=== PATIENT | male | born 1945 | race Caucasian/White ===

== ENCOUNTER 2020-03-06 00:02 | Inpatient (IN) | payer BC, OTHER ==
[~2020-03-06] VITALS: Ht 170.2 cm; Wt 83.5 kg
[2020-03-06] VITALS (7 sets, daily range): BP systolic 155–190; BP diastolic 82–98
--- NOTE | 2020-03-06 00:19 | NUR ---
COVID SWAB SENT TO LAB.
--- NOTE | 2020-03-06 00:21 | NUR ---
SPOKE TO MD REGARDING PT'S PAIN LEVEL. ORDERED 1MG IVP NOW OF DILAUDID.,.
[2020-03-06] MEDS ORDERED: HYDROMORPHONE 1 MG/1 ML DISP.SYRIN ONE (00:26)
[2020-03-06] MEDS ORDERED: HYDROMORPHONE INJ 0.5 MG/0.5 ML SYRINGE IV ONE (00:30)
--- NOTE | 2020-03-06 00:49 | NUR ---
CALL FROM LAB, COVID NEGATIVE.
[2020-03-06] MEDS ORDERED: INSULIN REGULAR, HUMAN 100 UNIT/ML 3 ML VIAL SQ PRN (01:00)
[2020-03-06] MEDS ORDERED: MAGNESIUM HYDROXIDE 30 ML UDC PO PRN (01:00)
[2020-03-06] MEDS ORDERED: ONDANSETRON HCL/PF 4 MG/2 ML VIAL IVP PRN (01:00)
[2020-03-06] MEDS ORDERED: DEXTROSE 50%-WATER 50 ML DISP.SYRIN IV PRN ×2 (01:00)
[2020-03-06] MEDS ORDERED: ACETAMINOPHEN 650 MG/SUPP.RECT RC PRN (01:00)
[2020-03-06] MEDS ORDERED: Z GUARD REMEDY 2 OZ OINT TP PRN (01:00)
--- NOTE | 2020-03-06 01:20 | NUR ---
PT TRANSFERED BY EMT.
--- NOTE | 2020-03-06 01:20 | NUR ---
REPORT GIVEN TO FRANCISCO PÉREZ FOR RONNY
--- NOTE | 2020-03-06 02:00 | NUR ---
MS TRANSPORTATION PROJECT MANAGER NOTES RECEIVED PATIENT FROM ER TRANSFER FROM [facility] FOR RIGHT HIP FRACTURE S/P MECHANICAL FALL AT HOME, ALERT AND ORIENTED X 4. VERBALLY RESPONSIVE AND ABLE TO FOLLOW DIRECTIONS. BREATHING REGULAR AND UNLABORED ON ROOM AIR. LEFT HAND G18 IV LINE INTACT BUT LEAKS WHEN FLUSHED. BODY ASSESSMENT DONE, SKIN INTACT BUT SEEN WITH RIGHT HAND SKIN DISCOLORATION PER PATIENT HE GOT IT WHEN HE FELL EARLIER. PATIENT DOESN'T HAVE ADVANCE DIRECTIVES BUT WISH TO BE FULL CODE. DENIES SUICIDAL IDEATION AT THIS TIME. VITAL SIGNS AND BELONGINGS CHECKED BY PRODUCTION ROUSTABOUT. COMPLAINED OF 7/10 RIGHT HIP PAIN, NON-PHARMACOLOGICAL INTERVENTIONS PROVIDED. ADVISED ON NOTHING BY MOUTH. BED LOW AND LOCKED ON SEMI FOWLERS POSITION. CALL LIGHT IN REACH. WILL CONTINUE TO MONITOR.
[2020-03-06] MEDS: IV D5/0.45 NACL 1,000 ML IV PRN ×2 (02:11→18:54)
--- NOTE | 2020-03-06 02:30 | NUR ---
MS RN NOTES REFUSED BENITEZ CATHETER INSERTION FOR NOW, PATIENT REQUEST TO DO IT LATER BEFORE THE SURGERY. RISK AND BENEFITS EXPLAINED.
--- NOTE | 2020-03-06 03:30 | NUR ---
MS RN NOTES IV LINE REINSERTED ON RIGHT AC G20 WITH GOOD BLOOD BACKFLOW AND FLUSHING WELL.
[2020-03-06] MEDS: HYDROMORPHONE INJ 2 MG/ML DISP.SYRIN IV PRN ×4 (03:58→22:54)
--- NOTE | 2020-03-06 05:00 | NUR ---
MS RN NOTES YOGI RENE NOTIFIED REGARDING DVT SCORE OF >5 WITH NO ORDERS FOR CHEMICAL DVT PPX, PATIENT MIGHT HAVE A SURGERY TODAY.
[2020-03-06] MEDS ORDERED: BLOOD SUGAR DIAGNOSTIC 1 EACH STRIP IN SCH (06:00)
[2020-03-06 06:26] LABS: BASOPHILS % (AUTO) 0.1 % (0.0-2.0); HEMATOCRIT 38 % (39-51); HEMOGLOBIN 12.5 g/dL (13.5-17.5); LYMPHOCYTES # (AUTO) 0.8 /CMM (0.8-4.8); LYMPHOCYTES % (AUTO) 10.2 % (20.0-44.0); MEAN CORPUSCULAR HGB CONC 33 g/dl (31.0-36.0); MEAN CORPUSCULAR VOLUME 91 fL (80-96); MONOCYTES # (AUTO) 0.4 /CMM (0.1-1.30); MONOCYTES % (AUTO) 5.4 % (2.0-12.0); NEUTROPHILS # (AUTO) 6.9 /CMM (1.8-8.9); NEUTROPHILS % (AUTO) 84.3 % (43.0-81.0); PLATELET COUNT (AUTO) 166 /CMM (150-450); RED BLOOD CELL COUNT(AUTO) 4.15 MIL/uL (4.5-6.0); WHITE BLOOD COUNT (AUTO) 8.2 K/uL (4.3-11.0)
[2020-03-06] MEDS: BLOOD SUGAR DIAGNOSTIC 1 EACH STRIP IN SCH ×4 (06:30→23:18)
[2020-03-06] MEDS: INSULIN REGULAR, HUMAN 100 UNIT/ML 3 ML VIAL SQ PRN ×3 (06:31→16:54)
--- NOTE | 2020-03-06 06:40 | NUR ---
MS RN CLOSING NOTES PATIENT IN BED ALERT AND ORIENTED X 4. AFEBRILE WITH NO S/S OF DISTRESS OBSERVED. RIGHT AC G20 IV LINE INTACT AND INFUSING WELL. COMPLAINED OF 6/10 RIGHT HIP PAIN, BUT NOT DUE FOR PAIN MEDS YET. NON-PHARMACOLOGICAL INTERVENTIONS PROVIDED. MAINTAINED ON NOTHING BY MOUTH. BED LOW AND LOCKED ON SEMI FOWLERS POSITION. CALL LIGHT IN REACH. WILL ENDORSE TO MORNING SHIFT FOR RONNY.
[2020-03-06 07:20] LABS: ALBUMIN 3.8 g/dL (3.4-5.0); BILIRUBIN,TOTAL 0.6 mg/dL (0.2-1.0); CALCIUM, SERUM 9.1 mg/dL (8.5-10.1); CREATININE 1.1 mg/dL (0.6-1.3); MAGNESIUM 2.1 mg/dL (1.8-2.4); PHOSPHORUS 3.5 mg/dL (2.5-4.9); POTASSIUM 4.2 mmol/L (3.5-5.1); TOTAL PROTEIN, SERUM 7.8 g/dL (6.4-8.2)
--- NOTE | 2020-03-06 09:30 | NUR ---
RN NOTE No CD from [facility] or any record of scans. Duina Newberry ordered hip xray STAT. Spoke with CM from [facility] about missing CD/records.
[2020-03-06] MEDS ORDERED: SIMV-49 PO (09:42)
[2020-03-06] MEDS ORDERED: LOSA100T31 PO (09:42)
[2020-03-06] MEDS ORDERED: TAMS-12 PO (09:42)
[2020-03-06] MEDS ORDERED: ALPR2TAB7 PO (09:42)
[2020-03-06] MEDS ORDERED: GLIM2TAB31 PO (09:42)
[2020-03-06] MEDS ORDERED: MORP30TA7 PO (09:42)
[2020-03-06] MEDS ORDERED: OMEP40CA13 PO (09:42)
[2020-03-06] MEDS ORDERED: ESCI20TA PO (09:42)
[2020-03-06] MEDS ORDERED: INSU100I30 SUBCUT (09:42)
[2020-03-06] MEDS ORDERED: ALLO300T2 PO (09:42)
[2020-03-06] MEDS ORDERED: OXYC20TA42 PO (09:42)
[2020-03-06] MEDS ORDERED: METF-834 PO (09:42)
[2020-03-06] MEDS ORDERED: FLUT16SP BNOSTRILS (09:42)
[2020-03-06] MEDS ORDERED: NALO25TA PO (09:42)
[2020-03-06] MEDS: hydrALAZINE HCL IV 20 MG VIAL IV PRN ×2 (09:47→17:16)
[2020-03-06 10:03] LABS: IRON, SERUM 41 ug/dl (50-175); TOTAL IRON BINDING CAPACITY 742 ug/dl (250-450)
[2020-03-06 10:22] LABS: FERRITIN 127 ng/mL (8-388)
--- NOTE | 2020-03-06 10:22 | NUR ---
RN NOTE 3 unsuccessful attempts at inserting rousseau catheter with myself and a second RN. MD made aware. Addendum: 03/06/20 at 1023 by YEYO HULL RN Also notified MD for med-recon.
[2020-03-06] MEDS ORDERED: LOSARTAN POTASSIUM 50 MG TABLET PO SCH (10:30)
[2020-03-06] MEDS ORDERED: oxyCODONE IR immediate release 5 MG PO PRN (10:30)
--- NOTE | 2020-03-06 11:04 | NUR ---
RN NOTE Per Dunia KENDALL. Patient is to be NPO after midnight and scheduled for RIGHT HIP HEMIARTHROPLASTY VERSUS TOTAL HIP ARTHROPLASTY tomorrow midafternoon. Orders repeated back and carried out. Ok per Dr. Hopkins to start patient on diet and NPO after midnight.
[2020-03-06] MEDS: METFORMIN 500 MG TABLET PO SCH ×2 (11:44→16:38)
--- NOTE | 2020-03-06 12:00 | NUR ---
RN NOTE BS 227. Patient refused insulin. Patient stated, " i am not eating and I am not hungry."
[2020-03-06] MEDS ORDERED: ENSURE ENLIVE 237 ML LIQUID (VANILLA) PO SCH (13:00)
[2020-03-06] MEDS ORDERED: HYDROMORPHONE 1 MG/1 ML DISP.SYRIN IV ONE (14:45)
--- NOTE | 2020-03-06 14:53 | NUR ---
RN NOTE Dr. Mae at the bedside. Patient continues to complain of pain 10/10. Per , ok to order DILAUDED 1MG ONE TIME prior to catheter insertion. Patient remains stable, vital signs stable. Will continue to monitor.
[2020-03-06] MEDS: GLUCERNA SHAKE 237 ML CAN PO SCH (17:00)
--- NOTE | 2020-03-06 19:30 | NUR ---
MS RN NOTE: PATIENT RESTING IN BED, NO ACUTE DISTRESS NOTED. BREATHING EVEN AND UNLABORED, NO SOB NOTED. IV TO RAC IN PLACE, INFUSING D5 1/2NS AT 75ML/HR. BENITEZ CATHETER IN PLACE, DRAINING CLEAR YELLOW URINE. PATIENT TO HAVE SURGERY TOMORROW, INSTRUCTED THAT HE CAN NOT EAT AFTER MIDNIGHT. CONSENT SIGNED AND IN CHART. BED LOCKED AND IN LOWEST POSITION, CALL LIGHT IN REACH. WILL CONTINUE TO MONITOR.
[2020-03-06] MEDS: SIMVASTATIN 20 MG TABLET PO SCH (21:17)
[2020-03-06] MEDS: TAMSULOSIN 0.4 MG CAP.SR.24H PO SCH (21:17)
[2020-03-06] MEDS: INSULIN GLARGINE, 100 UNIT/ML CARTRIDGE SQ SCH (22:00)
--- NOTE | 2020-03-06 23:00 | NUR ---
MS RN NOTE: PATIENT BLOOD SUGAR LEVEL 165MG/DL, PATIENT TO BE NPO FOR SURGERY IN MORNING, NO INSULIN GIVEN PER MD ORDER. SNACKS PROVIDED BEFORE MIDNIGHT. NO S/S OF HYPER/HYPOGLYCEMIA NOTED. PATIENT COMPLAINS OF PAIN 10/10 TO RIGHT HIP, DILAUDID 1MG IV GIVEN PER MD ORDER. WILL CONTINUE TO MONITOR.
[2020-03-07] MEDS ORDERED: hydrALAZINE HCL 25 MG TABLET PO PRN (03:00)
[2020-03-07] MEDS: HYDROMORPHONE INJ 2 MG/ML DISP.SYRIN IV PRN ×2 (03:06→09:02)
--- NOTE | 2020-03-07 03:10 | NUR ---
MS RN NOTE: PATIENT BLOOD PRESSURE ELEVATED, CALLED ELECTRIC TOOL REPAIRER MD FOR BLOOD PRESSURE MEDICATION, RECEIVED ORDERS FOR HYDRALAZINE 25MG 1 TAB ORAL EVERY 6 HOURS NEEDED FOR SBP GREATER THAN 160, SINCE THERE IS NO STOCK OF HYDRALAZINE 10MG IV AT THIS TIME. ORDERS NOTED AND CARRIED OUT. MEDICATION GIVEN WITH SMALL SIP OF WATER. PATIENT COMPLAINS OF PAIN 10/10 TO RIGHT HIP, DILAUDID 1MG IV GIVEN PER MD ORDER. WILL CONTINUE TO MONITOR.
[2020-03-07] MEDS: BLOOD SUGAR DIAGNOSTIC 1 EACH STRIP IN SCH ×4 (06:19→22:30)
--- NOTE | 2020-03-07 06:20 | NUR ---
MS RN NOTE: PATIENT RESTING IN BED, NO ACUTE DISTRESS NOTED. BREATHING EVEN AND UNLABORED, NO SOB NOTED. IV TO RAC IN PLACE, INFUSING D5 1/2NS AT 75ML/HR. BENITEZ CATHETER IN PLACE, DRAINING CLEAR YELLOW URINE. PATIENT TO HAVE SURGERY TODAY, NPO SINCE MIDNIGHT. CONSENT SIGNED AND IN CHART, CHECKLIST COMPLETED. PATIENT BLOOD SUGAR LEVEL 192MG/DL, NO INSULIN GIVEN SINCE NPO FOR SUGERY. BED LOCKED AND IN LOWEST POSITION, CALL LIGHT IN REACH. WILL ENDORSE TO DAY NURSE TO CONTINUE WITH PLAN OF CARE.
[2020-03-07 06:40] LABS: APPEARANCE,URINE CLEAR (CLEAR); BILIRUBIN,URINE NEGATIVE (NEGATIVE); BLOOD, URINE MODERATE Ery/uL (NEGATIVE); COLOR,URINE YELLOW (YELLOW); KETONES,URINE 15 (NEGATIVE); LEUKOCYTE ESTERASE ,URINE NEGATIVE (NEGATIVE); NITRITE, URINE NEGATIVE (NEGATIVE); PROTEIN,URINE TRACE mg/dl (NEGATIVE); UGLUCOSE 250 MG/DL mg/dL (NEGATIVE); UROBILINOGEN,URINE 0.2 EU/dL (0.2)
[2020-03-07 06:43] LABS: BASOPHILS % (AUTO) 0.2 % (0.0-2.0); HEMATOCRIT 37 % (39-51); HEMOGLOBIN 12.2 g/dL (13.5-17.5); LYMPHOCYTES # (AUTO) 0.7 /CMM (0.8-4.8); LYMPHOCYTES % (AUTO) 8.4 % (20.0-44.0); MEAN CORPUSCULAR HGB CONC 33 g/dl (31.0-36.0); MEAN CORPUSCULAR VOLUME 91 fL (80-96); MONOCYTES # (AUTO) 0.5 /CMM (0.1-1.30); MONOCYTES % (AUTO) 6.6 % (2.0-12.0); NEUTROPHILS % (AUTO) 84.8 % (43.0-81.0); PLATELET COUNT (AUTO) 162 /CMM (150-450); RED BLOOD CELL COUNT(AUTO) 4.04 MIL/uL (4.5-6.0); WHITE BLOOD COUNT (AUTO) 8.2 K/uL (4.3-11.0)
[2020-03-07 06:51] LABS: CALCIUM, SERUM 9.2 mg/dL (8.5-10.1); CREATININE 0.9 mg/dL (0.6-1.3); MAGNESIUM 2.3 mg/dL (1.8-2.4); POTASSIUM 3.8 mmol/L (3.5-5.1)
[2020-03-07] MEDS ORDERED: hydrALAZINE HCL IV 20 MG VIAL IV PRN (07:00)
[2020-03-07 07:11] LABS: BACTERIA,URINE Rare /HPF (None Seen); SQUAMOUS EPITHELIAL CELL,UR None Seen /HPF (None Seen)
[2020-03-07 07:12] LABS: WBC,URINE 0-2 /HPF (0-3)
[2020-03-07 08:00] VITALS: BP 179/93
[2020-03-07] MEDS: GLUCERNA SHAKE 237 ML CAN PO SCH ×2 (08:00→17:22)
--- NOTE | 2020-03-07 08:07 | NUR ---
RN NOTE Per Dr. Bernabe, start patient on Clonidine patch TTS 3 for unresolved hypertension. Orders repeated back and will carry out. Charge nurse aware.
[2020-03-07] MEDS ORDERED: CLONIDINE HCL 0.3 MG/24H PTWK 1 EA PATCH TD SCH (09:00)
[2020-03-07] MEDS: METFORMIN 500 MG TABLET PO SCH ×2 (09:00→17:21)
[2020-03-07] MEDS: VALSARTAN 80 MG TABLET PO SCH (09:02)
--- NOTE | 2020-03-07 09:24 | NUR ---
RN NOTE Gave BP meds due to elevated BP. Will hold the rest of PO meds for now until patient comes back from surgery.
[2020-03-07] MEDS: FLUTICASONE PROPIONATE 16 GM BOTTLE NS SCH (09:26)
[2020-03-07] MEDS: NITROGLYCERIN 30 GM TUBE TP SCH ×2 (09:26→22:29)
--- NOTE | 2020-03-07 10:00 | NUR ---
RN NOTE Patient went down to OR.
[2020-03-07] MEDS ORDERED: BACITRACIN 50000 UNITS/VIAL ONE (11:14)
[2020-03-07] MEDS ORDERED: BUPIVACAINE 0.5 % PF 150 MG/30 ML VIAL ONE (11:14)
[2020-03-07] MEDS ORDERED: FENTANYL PF 250MCG/5ML AMPUL ONE (11:29)
[2020-03-07] MEDS ORDERED: MIDAZOLAM HCL 2 MG/2ML VIAL ONE (11:29)
[2020-03-07] MEDS ORDERED: ROCURONIUM BROMIDE 50 MG/5 ML ONE (11:30)
[2020-03-07] MEDS ORDERED: HYDROMORPHONE INJ 2 MG/ML DISP.SYRIN ONE (11:30)
[2020-03-07] MEDS ORDERED: FAMOTIDINE/PF INJ 20 MG/2 ML VIAL IV ONE (11:30)
[2020-03-07] MEDS ORDERED: TRANEXAMIC ACID 1,000 MG in IV NS 0.9% 100 ML IV ONE ×2 (12:30→13:30)
[2020-03-07] MEDS ORDERED: VANCOMYCIN 1 GM VIAL ONE (12:55)
[2020-03-07] MEDS ORDERED: GENTAMICIN 80 MG/2 ML VIAL ONE (12:55)
--- NOTE | 2020-03-07 13:34 | NUR ---
RN NOTE Patient is in surgery. No accu-check.
[2020-03-07 14:48] LABS: BASOPHILS % (AUTO) 0.1 % (0.0-2.0); HEMATOCRIT 34 % (39-51); HEMOGLOBIN 11.1 g/dL (13.5-17.5); LYMPHOCYTES # (AUTO) 0.6 /CMM (0.8-4.8); LYMPHOCYTES % (AUTO) 4.6 % (20.0-44.0); MEAN CORPUSCULAR HGB CONC 32 g/dl (31.0-36.0); MEAN CORPUSCULAR VOLUME 93 fL (80-96); MONOCYTES # (AUTO) 0.8 /CMM (0.1-1.30); MONOCYTES % (AUTO) 5.9 % (2.0-12.0); NEUTROPHILS # (AUTO) 11.4 /CMM (1.8-8.9); NEUTROPHILS % (AUTO) 89.4 % (43.0-81.0); PLATELET COUNT (AUTO) 185 /CMM (150-450); WHITE BLOOD COUNT (AUTO) 12.8 K/uL (4.3-11.0)
--- NOTE | 2020-03-07 14:53 | NUR ---
RN NOTE Patient arrived from surgery, A/O x4, showing no signs of acute distress or SOB, saturating 97% on 2L NC. BP 145/81 HR 100 RR 18 T 99.1F. Patient has no complaints of pain at this time. POst-op orders sent to pharmacy. Bed is in lowest position, side rails x3 in upright position, call light is within reach, fall safety and aspiration precautions enforced. Will continue with plan of care.
[2020-03-07 14:59] VITALS: BP 145/81
[2020-03-07] MEDS ORDERED: HYDROCODONE/APAP 5/325MG TABLET PO PRN (15:00)
[2020-03-07] MEDS ORDERED: DOCUSATE SODIUM 100 MG CAPSULE PO PRN (15:00)
[2020-03-07] MEDS ORDERED: ACETAMINOPHEN 325 MG TABLET PO PRN (15:00)
[2020-03-07] MEDS: SOD FERRIC GLUC 125 MG in IV NS 0.9% 100 ML IV SCH (15:34)
[2020-03-07] MEDS: GLIMEPIRIDE 1 MG TABLET PO SCH (15:36)
[2020-03-07] MEDS: ALLOPURINOL 100 MG TABLET PO SCH (15:36)
[2020-03-07] MEDS: ESCITALOPRAM OXALATE (10 MG) 10 MG TABLET PO SCH (15:36)
[2020-03-07 16:00] VITALS: BP 145/81
[2020-03-07] MEDS: INSULIN REGULAR, HUMAN 100 UNIT/ML 3 ML VIAL SQ PRN ×3 (17:25→22:32)
--- NOTE | 2020-03-07 17:30 | NUR ---
RN NOTE Patient has temp of 99.1F when arrived from OR. cooling measure implemented. Temp rechecked and 98.9F. Offered if patient would like pain medication but he refused he said "I will have it later."
--- NOTE | 2020-03-07 18:30 | NUR ---
RN NOTE Initially gave patietn 4 units insulin. Added an extra 2 units to cover for BS of 255 per protocol. Co-signed with another RN.
--- NOTE | 2020-03-07 18:39 | NUR ---
RN NOTE Ok per Dr. Hopkins (T.O.) to continue Alprazolam from home meds list.
--- NOTE | 2020-03-07 18:57 | NUR ---
RN CLOSING NOTE Patient is resting in bed, A/O x4, showing no signs of acute distress or SOB, saturating >95% on 2L NC. S/P total hip arthroplasty with Dr. Hickman. IV line in the [facility] is clean and intact flushing well. Patient is on bedrest with wedge in between legs. Right surgical incision dressing is clean, dry and intact. DVT pumps in place. All patient needs met, all due medications given, patient kept clean and dry throughout shift. Bed is in lowest position, side rails x3 in upright position, call light is within reach, fall safety and aspiration precautions enforced. Will endorse to table games shift manager.
[2020-03-07] MEDS ORDERED: ALPRAZOLAM 1 MG TABLET PO PRN (19:30)
[2020-03-07 20:00] VITALS: BP 140/76
[2020-03-07] MEDS: CEFAZOLIN 2 GM in IV D5W 100 ML IV SCH (20:36)
[2020-03-07] MEDS: TAMSULOSIN 0.4 MG CAP.SR.24H PO SCH (22:29)
[2020-03-07] MEDS: SIMVASTATIN 20 MG TABLET PO SCH (22:30)
[2020-03-07] MEDS: INSULIN GLARGINE, 100 UNIT/ML CARTRIDGE SQ SCH (22:33)
[2020-03-07] MEDS: HYDROMORPHONE 1 MG/1 ML DISP.SYRIN IV PRN (22:48)
--- NOTE | 2020-03-07 23:26 | NUR ---
MS/TELE/RN PATIENT IS SLEEPING AT THIS TIME, APPEAR COMFORTABLE, BREATHING EVEN AND UNLABORED, CALL LIGHT IN REACH. WILL CONTINUE TO MONITOR.
[2020-03-08] MEDS: CEFAZOLIN 2 GM in IV D5W 100 ML IV SCH (04:16)
[2020-03-08] MEDS: BLOOD SUGAR DIAGNOSTIC 1 EACH STRIP IN SCH ×4 (05:56→21:28)
[2020-03-08] MEDS: INSULIN REGULAR, HUMAN 100 UNIT/ML 3 ML VIAL SQ PRN ×3 (05:58→21:20)
[2020-03-08] MEDS: HYDROMORPHONE 1 MG/1 ML DISP.SYRIN IV PRN ×2 (06:12→09:39)
--- NOTE | 2020-03-08 06:21 | NUR ---
MS/TELE/RN F/C WAS REMOVED ORDERED. TOLERATED. PATIENT IS AWAKE, ALERT, NO DISTRESS NOTED ALL NEEDS ATTENDED AT THIS TIME, WILL CONTINUE TO MONITOR.
[2020-03-08 06:27] LABS: BASOPHILS % (AUTO) 0.1 % (0.0-2.0); HEMATOCRIT 31 % (39-51); HEMOGLOBIN 9.9 g/dL (13.5-17.5); LYMPHOCYTES # (AUTO) 0.6 /CMM (0.8-4.8); LYMPHOCYTES % (AUTO) 8.2 % (20.0-44.0); MEAN CORPUSCULAR HGB CONC 32 g/dl (31.0-36.0); MEAN CORPUSCULAR VOLUME 93 fL (80-96); MONOCYTES # (AUTO) 0.7 /CMM (0.1-1.30); MONOCYTES % (AUTO) 8.8 % (2.0-12.0); NEUTROPHILS # (AUTO) 6.2 /CMM (1.8-8.9); NEUTROPHILS % (AUTO) 82.9 % (43.0-81.0); PLATELET COUNT (AUTO) 149 /CMM (150-450); WHITE BLOOD COUNT (AUTO) 7.4 K/uL (4.3-11.0)
[2020-03-08 06:58] LABS: CALCIUM, SERUM 8.2 mg/dL (8.5-10.1); MAGNESIUM 2.1 mg/dL (1.8-2.4); PHOSPHORUS 2.2 mg/dL (2.5-4.9); POTASSIUM 3.6 mmol/L (3.5-5.1)
[2020-03-08 08:00] VITALS: BP 127/65
--- NOTE | 2020-03-08 08:00 | NUR ---
MS RN NOTES PATIENT IN BED RESTING NO SOB OR ACUTE DISTRESS NOTED. PATIENT ALERT, ORIENTED 3. PERIPHERAL IV INTACT PATENT. BED IN LOW LOCKED POSITION. CALL LIGHT WITHIN REACH. WILL CONTINUE TO MONITOR.
[2020-03-08] MEDS: ALLOPURINOL 100 MG TABLET PO SCH ×2 (09:00→09:19)
[2020-03-08] MEDS: NITROGLYCERIN 30 GM TUBE TP SCH ×2 (09:00→21:31)
[2020-03-08] MEDS: VALSARTAN 80 MG TABLET PO SCH ×2 (09:00→09:19)
[2020-03-08] MEDS: ESCITALOPRAM OXALATE (10 MG) 10 MG TABLET PO SCH ×2 (09:00→09:18)
[2020-03-08] MEDS: GLIMEPIRIDE 1 MG TABLET PO SCH ×2 (09:00→09:18)
[2020-03-08] MEDS: ASPIRIN 325 MG TABLET PO SCH ×2 (09:18→17:10)
[2020-03-08] MEDS: METFORMIN 500 MG TABLET PO SCH ×2 (09:19→17:10)
[2020-03-08] MEDS: FLUTICASONE PROPIONATE 16 GM BOTTLE NS SCH (09:23)
[2020-03-08] MEDS: GLUCERNA SHAKE 237 ML CAN PO SCH ×2 (09:54→17:56)
[2020-03-08] MEDS ORDERED: NEUTRA PHOS 1 POWD.PACKET PO ONE (10:30)
--- NOTE | 2020-03-08 14:00 | NUR ---
MS RN NOTES PATIENT UNABLE TO URINATE AFTER MULTIPLE TRIES, WITH ORDERS TO STRAIGHT CATH IF PATIENT UNABLE TO URINATE. STRAIGHT CATH PERFORMED OBTAINED 600ML URINE. WILL CONTINUE TO MONITOR.
[2020-03-08] MEDS: SOD FERRIC GLUC 125 MG in IV NS 0.9% 100 ML IV SCH (15:02)
[2020-03-08] MEDS: IV D5/0.45 NACL 1,000 ML IV PRN (15:09)
[2020-03-08 16:00] VITALS: BP 109/61
--- NOTE | 2020-03-08 18:45 | NUR ---
MS RN NOTES PATIENT IN BED RESTING NO SOB OR ACUTE DISTRESS NOTED. ALL DUE MEDICATIONS ADMINISTERED. ALL NEEDS MET. PATIENT NOTED WITH POOR APATITE AND POOR MOTIVATION. NO ACUTE CHANGES NOTED DURING AM SHIFT. PATIENT WAS SEEN BY PT AND TOLERATED WELL. WILL ENDORSE CARE TO PM SHIFT.
--- NOTE | 2020-03-08 19:15 | NUR ---
MS RN PM OPENING NOTE BEDSIDE REPORT RECIEVED FROM KOLBY PÉREZ. PATIENT IN BED RESTING NO SOB OR ACUTE DISTRESS NOTED BREATHING EVEN AND UNLABORED. PER REPORT PATIENT HAS HAD POOR APPETTITE POOR MOTIVATION. PT IS MAX ASSIST PER REPORT. WILL CONT TO MONITOR. IV HEPLOCKED PT TOLERATING PO INTAKE.
[2020-03-08 20:00] VITALS: BP 112/58
--- NOTE | 2020-03-08 21:21 | NUR ---
PATIENT REFUSING EVENING SNACK; SLIDING SCALE COVERAGE HELD PT IN AGREEMENT.
[2020-03-08] MEDS: TAMSULOSIN 0.4 MG CAP.SR.24H PO SCH (21:27)
[2020-03-08] MEDS: SIMVASTATIN 20 MG TABLET PO SCH (21:27)
[2020-03-08] MEDS: INSULIN GLARGINE, 100 UNIT/ML CARTRIDGE SQ SCH (21:30)
--- NOTE | 2020-03-09 00:53 | NUR ---
STRAIGHT CATH PT HAS NOT PEED SINCE STARTING SHIFT. BLADDER SCAN REVEALED 450 PT STRAIGHTCATHED PER STANDING ORDER AND 650 ML REMOVED. WILL CONT TO MONITOR..
[2020-03-09] MEDS: INSULIN REGULAR, HUMAN 100 UNIT/ML 3 ML VIAL SQ PRN ×2 (06:51→11:38)
[2020-03-09] MEDS: BLOOD SUGAR DIAGNOSTIC 1 EACH STRIP IN SCH ×2 (06:52→11:39)
[2020-03-09 07:23] LABS: CALCIUM, SERUM 8.3 mg/dL (8.5-10.1); CREATININE 0.8 mg/dL (0.6-1.3); POTASSIUM 3.6 mmol/L (3.5-5.1)
--- NOTE | 2020-03-09 07:44 | NUR ---
RN NOTES RECEIVED PATIENT IN BED RESTING COMFORTABLY IN MODERATE HIGH BACK REST. A/O X3. ON RA, TOLERATING WELL. IV ACCESS ON RAC #20, PATENT AND INTACT. NO SIGNS OF DISTRESS NOTED AT THIS TIME, SAFETY MEASURES IN PLACE, BED IN LOWEST LOCKED POSITION WITH SIDE RAILS UP X2. CALL LIGHT WITHIN REACH. WILL CONTINUE TO MONITOR.
[2020-03-09 08:00] VITALS: BP 129/63
[2020-03-09] MEDS: GLUCERNA SHAKE 237 ML CAN PO SCH ×2 (08:37→16:50)
[2020-03-09] MEDS: ALLOPURINOL 100 MG TABLET PO SCH (08:39)
[2020-03-09] MEDS: METFORMIN 500 MG TABLET PO SCH ×2 (08:39→16:50)
[2020-03-09] MEDS: VALSARTAN 80 MG TABLET PO SCH (08:39)
[2020-03-09] MEDS: GLIMEPIRIDE 1 MG TABLET PO SCH (08:40)
[2020-03-09] MEDS: ESCITALOPRAM OXALATE (10 MG) 10 MG TABLET PO SCH (08:40)
[2020-03-09] MEDS: ASPIRIN 325 MG TABLET PO SCH ×2 (08:40→16:50)
[2020-03-09 08:45] VITALS: BP 129/63
[2020-03-09] MEDS: NITROGLYCERIN 30 GM TUBE TP SCH (08:45)
[2020-03-09] MEDS: FLUTICASONE PROPIONATE 16 GM BOTTLE NS SCH (08:46)
[2020-03-09] MEDS: HYDROMORPHONE 1 MG/1 ML DISP.SYRIN IV PRN (13:57)
[2020-03-09] MEDS: SOD FERRIC GLUC 125 MG in IV NS 0.9% 100 ML IV SCH (14:35)
--- NOTE | 2020-03-09 17:30 | NUR ---
RN DISCHARGED NOTES PATIENT DISCHARGED IN STABLE CONDITION. A/O X3. ABLE TO MAKE NEEDS KNOWN. V/S TAKEN, STABLE AND RECORDED. IV ACCESS REMOVED AND APPLIED PRESSURE DRESSINGS. REFUSED SKIN ASSESSMENT. NAME ARM BAND REMOVED. PATIENT REFUSED TO SIGNED BELONGINGS LIST, ASKING FOR HIS I.D AND SOCIAL SECURITY CARD BUT IT IS NOT ON THE BELONGINGS LIST. HEALTH TEACHINGS/DISCHARGED INSTRUCTIONS GIVEN TO PATIENT AND VERBALIZED UNDERSTANDING. REPORT GIVEN TO ELISA CASTELLANOS FROM [facility]. PATIENT LEFT UNIT VIA GURNEY WITH 2 AMBULANCE STAFF. NO SIGNS OF ACUTE DISTRESS NOTED. CHARGE NURSE AWARE OF DISCHARGED.
--- NOTE | 2020-03-09 17:45 | NUR ---
RN NOTES PATIENT REFUSED INSULIN COVERAGE PER SLIDING SCALE, EXPLAINED RISKS AND BENEFITS BUT STILL REFUSED, WILL CONTINUE TO MONITOR.
== END 2020-03-09 17:30 | DRG 481 ==
LOC: ER 00:06 → MED 00:54
PROC: 0QS604Z Reposition Right Upper Femur with Internal Fixation Device, Open Approach (ICD-10-PCS; principal; 2020-03-07)
DX: S72.141A Displaced intertrochanteric fracture of right femur, initial encounter for closed fracture (principal); N13.8 Other obstructive and reflux uropathy; F11.20 Opioid dependence, uncomplicated; E11.9 Type 2 diabetes mellitus without complications; E78.5 Hyperlipidemia, unspecified; N40.1 Benign prostatic hyperplasia with lower urinary tract symptoms; I10 Essential (primary) hypertension; D50.9 Iron deficiency anemia, unspecified; X58.XXXA Exposure to other specified factors, initial encounter; Y92.9 Unspecified place or not applicable; E11.65 Type 2 diabetes mellitus with hyperglycemia; F41.9 Anxiety disorder, unspecified; G89.4 Chronic pain syndrome; M10.9 Gout, unspecified; M85.80 Other specified disorders of bone density and structure, unspecified site; Z79.4 Long term (current) use of insulin; W19.XXXA Unspecified fall, initial encounter; D64.9 Anemia, unspecified
CPT/HCPCS: 36415; 71045-TC; 72170-TC; 73502; 80048-TC; 80053-TC; 80061-TC; 81000-TC; 82728-TC; 82962-TC; 83540-TC; 83735-TC; 84100-TC; 85025-TC; 85610-TC; 86850-TC; 87081-TC; 88305-TC; 88311-TC; 93307-TC; 97110-TC; 97116-TC; 97530-TC; A4217; A6209; C1776; C9803-CS; G0378; J0360; J0690; J1170; J1580; J1815; J2250; J2704; J2765; J2916; J3010; J3370; J3490; J7030; J7060